=== PATIENT | male | born 1965 | race Caucasian/White ===

== ENCOUNTER 2024-01-16 20:42 | Observation (INO) | payer OTHER ==
--- NOTE | 2024-01-16 21:01 | ERPHSYRPT ---
- History of Present Illness Time Seen by Provider: 01/16/24 20:42 Source: patient, family ([id number]) Physician History: Pt c/o shortness of air for the past 2 days with weight gain since 8 days ago. Pt denies chest pain, abdominal pain, nausea, vomiting, diarrhea, fever. Allergies/Adverse Reactions: No Known Drug Allergies Allergy (Verified 01/16/24 20:44) Home Medications: Amlodipine Besylate 5 mg [Norvasc 5 mg] 5 mg PO DAILY 10/28/14 [History] Losartan Potassium 50 mg [Cozaar 50 MG] 50 mg PO DAILY 10/28/14 [History] Atorvastatin Calcium [Lipitor] 10 mg PO HS 01/16/24 [History] Hx Tetanus, Diphtheria Vaccination/Date Given: Yes (2011) Hx Influenza Vaccination/Date Given: No Hx Pneumococcal Vaccination/Date Given: No - Review of Systems Constitutional: No Fever Respiratory: Dyspnea Cardiac: No Chest Pain Abdominal/Gastrointestinal: No Abdominal Pain, No Nausea, No Vomiting, No Diarrhea Neurological: Headache (intermittent frontal headaches for years) - Past Medical History Pertinent Past Medical History: Yes Cardiac History: Hypertension Endocrine Medical History: Diabetes Type II - Past Surgical History Past Surgical History: Yes Other Surgical History: TONSILS. TENDON REPAIR - Social History Smoking Status: Current every day smoker Exposure to second hand smoke: No Drug Use: none Patient Lives Alone: No - Nursing Vital Signs Nursing Vital Signs: Initial Vital Signs Temperature 99.5 F 01/16/24 20:45 Pulse Rate 83 01/16/24 20:45 Respiratory Rate 18 01/16/24 20:45 Blood Pressure 180/72 01/16/24 20:45 O2 Sat by Pulse Oximetry 96 01/16/24 20:45 Pain Scale Pain Intensity 0 - Physical Exam General Appearance: alert Eye Exam: eyes nml inspection Ears, Nose, Throat Exam: hearing grossly normal, normal pharynx Neck Exam: normal inspection Respiratory Exam: lungs clear Cardiovascular/Chest Exam: normal heart sounds Abdominal/Gastrointestinal Exam: normal bowel sounds Extremity Exam: swelling (+2 edema of legs) Neurologic Exam: alert, cooperative Skin Exam: warm, dry SpO2 Interpretation: normal SpO2: 96 O2 Delivery: Room Air - Course EKG Interpreted by Me: RATE (83), Sinus Rhythm, NORMAL AXIS, Other (QTc = 420) - CT Exams Chest CT Interpretation: Tele-radiologist Report (No evidence of acute pulmonary thromboembolism. Mild to moderate bilateral pleural effusion with atelectatic bands in lower lobes and minimal surrounding haziness. See rest of report.) Ordered Tests: Active Orders 24 hr Category Date Time Status Residential Pest Control Technician STAT Care 01/16/24 20:58 Active EKG-ER Only STAT Care 01/16/24 20:56 Active IV Insertion STAT Care 01/16/24 20:56 Active Pulse Oximetry (ED) STAT Care 01/16/24 20:56 Active CHEST WITH CONTRAST [CT] Stat Exams 01/16/24 20:57 Completed CBC W DIFF Stat Lab 01/16/24 21:10 Completed CMP Stat Lab 01/16/24 21:10 Completed MAGNESIUM Stat Lab 01/16/24 21:10 Completed NT PRO BNPII Stat Lab 01/16/24 21:10 Completed TROPONIN Q4H Lab 01/16/24 21:10 Completed TROPONIN Q4H Lab 01/17/24 01:00 Ordered TROPONIN Q4H Lab 01/17/24 05:00 Ordered VENOUS BLOOD GAS Stat Lab 01/16/24 21:08 Completed Medication Summary Generic Name Dose Route Start Last Admin Trade Name Freq PRN Reason Stop Dose Admin Sodium Chloride 1,000 mls @ 100 mls/hr 01/16/24 21:00 01/16/24 21:13 Sodium Chloride 0.9% 1000 Ml IV 02/15/24 20:59 100 mls/hr .Q10H CRISTY Administration Discontinued Medications Generic Name Dose Route Start Last Admin Trade Name Freq PRN Reason Stop Dose Admin Furosemide 40 mg 01/17/24 00:21 Furosemide 40 Mg/4 Ml Vial IV 01/17/24 00:22 STAT ONE Lab/Rad Data: Laboratory Result Diagrams 01/16/24 21:10 01/16/24 21:10 Laboratory Results 01/16/24 01/16/24 01/16/24 Range/Units 21:10 21:10 21:10 WBC (4.23-9.07) x10^3/uL RBC (4.63-6.08) x10^6/uL Hgb (13.7-17.5) g/dL Hct (40.1-51.0) % MCV (79.0-92.2) fL MCH (25.7-32.2) pg MCHC (32.3-36.5) g/dL RDW (11.6-14.4) % Plt Count (163-337) x10^3/uL MPV (9.4-12.4) fL Gran % (34.0-67.9) % Immature Gran % (Auto) (0.001-0.429) % Nucleat RBC Rel Count (0.00-0.2) % Eos # (Auto) (0.04-0.54) x10^3/uL Immature Gran # (Auto) (0.001-0.031) x10^3u/L Absolute Lymphs (auto) (1.32-3.57) x10^3/uL Absolute Monos (auto) (0.30-0.82) x10^3/uL Absolute Nucleated RBC (0.00-0.012) x10^3u/L Lymphocytes % (21.8-53.1) % Monocytes % (5.3-12.2) % Eosinophils % (0.8-7.0) % Basophils % (0.2-1.2) % Absolute Granulocytes (1.78-5.38) x10^3/uL Basophils # (0.01-0.08) x10^3/uL pO2/FiO2 Ratio % VBG pH (7.32-7.42) VBG pCO2 at Pat Temp (42-55) mm/Hg VBG pO2 at Pat Temp (25-40) mm/Hg VBG HCO3 (22-28) meq/L VBG O2 Sat ([place]) (95-100) VBG Base Excess (-2.0-2.0) VBG Hemoglobin VBG Carboxyhemoglobin (0.0-6.9) % T HGB POC Potassium (3.5-5.1) Sodium (135-145) mmol/L Potassium (3.5-5.1) mmol/L Chloride (98-107) mmol/L Carbon Dioxide (22-30) mmol/L Anion Gap (5-15) MEQ/L BUN (9-20) mg/dL Creatinine (0.66-1.25) mg/dL Estimated GFR ML/MIN Glucose (74-106) mg/dL Calcium (8.4-10.2) mg/dL Magnesium (1.6-2.3) mg/dL Total Bilirubin (0.2-1.3) mg/dL AST (17-59) U/L ALT (0-50) U/L Alkaline Phosphatase (38-126) U/L Troponin I < 0.012 (0.000-0.033) ng/mL NT-Pro-B Natriuret Pep (<300) pg/mL Serum Total Protein (6.3-8.2) g/dL Albumin (3.5-5.0) g/dL Influenza Type A Ag NEGATIVE (NEGATIVE) Influenza Type B Ag NEGATIVE (NEGATIVE) RSV (PCR) NEGATIVE (NEGATIVE) SARS-CoV-2 (PCR) NEGATIVE (NEGATIVE) Group A Strep Antibody NOT DETECTED (NEGATIVE) 01/16/24 01/16/24 01/16/24 Range/Units 21:10 21:10 21:08 WBC 6.9 (4.23-9.07) x10^3/uL RBC 3.48 L (4.63-6.08) x10^6/uL Hgb 9.8 L (13.7-17.5) g/dL Hct 30.9 L (40.1-51.0) % MCV 88.8 (79.0-92.2) fL MCH 28.2 (25.7-32.2) pg MCHC 31.7 L (32.3-36.5) g/dL RDW 15.1 H (11.6-14.4) % Plt Count 155 L (163-337) x10^3/uL MPV 12.0 (9.4-12.4) fL Gran % 72.8 H (34.0-67.9) % Immature Gran % (Auto) 0.4 (0.001-0.429) % Nucleat RBC Rel Count 0.0 (0.00-0.2) % Eos # (Auto) 0.24 (0.04-0.54) x10^3/uL Immature Gran # (Auto) 0.03 (0.001-0.031) x10^3u/L Absolute Lymphs (auto) 1.00 L (1.32-3.57) x10^3/uL Absolute Monos (auto) 0.57 (0.30-0.82) x10^3/uL Absolute Nucleated RBC 0.00 (0.00-0.012) x10^3u/L Lymphocytes % 14.6 L (21.8-53.1) % Monocytes % 8.3 (5.3-12.2) % Eosinophils % 3.5 (0.8-7.0) % Basophils % 0.4 (0.2-1.2) % Absolute Granulocytes 5.00 (1.78-5.38) x10^3/uL Basophils # 0.03 (0.01-0.08) x10^3/uL pO2/FiO2 Ratio 21.0 % VBG pH 7.48 H (7.32-7.42) VBG pCO2 at Pat Temp 33 L (42-55) mm/Hg VBG pO2 at Pat Temp 63 H (25-40) mm/Hg VBG HCO3 24.6 (22-28) meq/L VBG O2 Sat ([place]) 94.1 L (95-100) VBG Base Excess 1.4 (-2.0-2.0) VBG Hemoglobin 10.4 VBG Carboxyhemoglobin 4.7 (0.0-6.9) % T HGB POC Potassium 6.5 H* (3.5-5.1) Sodium 136 (135-145) mmol/L Potassium 3.8 (3.5-5.1) mmol/L Chloride 105 (98-107) mmol/L Carbon Dioxide 23 (22-30) mmol/L Anion Gap 12.1 (5-15) MEQ/L BUN 20 (9-20) mg/dL Creatinine 0.83 (0.66-1.25) mg/dL Estimated GFR 100.2 ML/MIN Glucose 157 H (74-106) mg/dL Calcium 8.7 (8.4-10.2) mg/dL Magnesium 1.9 (1.6-2.3) mg/dL Total Bilirubin 0.40 (0.2-1.3) mg/dL AST 26 (17-59) U/L ALT 33 (0-50) U/L Alkaline Phosphatase 94 (38-126) U/L Troponin I (0.000-0.033) ng/mL NT-Pro-B Natriuret Pep 1610 (<300) pg/mL Serum Total Protein 5.8 L (6.3-8.2) g/dL Albumin 3.1 L (3.5-5.0) g/dL Influenza Type A Ag (NEGATIVE) Influenza Type B Ag (NEGATIVE) RSV (PCR) (NEGATIVE) SARS-CoV-2 (PCR) (NEGATIVE) Group A Strep Antibody (NEGATIVE) - Progress Progress: unchanged Discussed with : Delilah (Spoke with & discussed case with Dr. Coughlin - obs) Will see patient in: hospital (observation) Counseled pt/family regarding: lab results, diagnosis, rad results Medical Desision Making - Diagnostic Testing Diagnostic test were ordered, analyzed, and reviewed by me: Yes Radiological Interpretation: Teleradiologist Report - Departure Departure Disposition: Observation Clinical Impression: Bilateral pleural effusion, Dyspnea Condition: Stable Critical Care Time: No Referrals: AYANA GARVEY DO [NON-STAFF PHY W/O PRIVILEGES] - Follow up/PCP as directed
[2024-01-16] MEDS ORDERED: Sodium Chloride 0.9% 1000 ML 1,000 ML ONE (21:09)
[2024-01-16 21:11] LABS: VBG BASE EXCESS 1.4 (-2.0-2.0); VBG CARBOXYHEMOGLOBIN 4.7 % T HGB (0.0-6.9); VBG HCO3- 24.6 meq/L (22-28); VBG HEMOGLOBIN 10.4; VBG O2 SATURATION 94.1 (95-100); VBG POTASSIUM 6.5 (3.5-5.1); VBG pH 7.48 (7.32-7.42)
[2024-01-16] MEDS: Sodium Chloride 0.9% 1000 ML 1,000 ML IV SCH (21:13)
[2024-01-16 21:18] LABS: BASOPHIL % 0.4 % (0.2-1.2); Basophil (Absolute #) 0.03 x10^3/uL (0.01-0.08); Eosinophil % 3.5 % (0.8-7.0); Eosinophil (Absolute #) 0.24 x10^3/uL (0.04-0.54); Hematocrit 30.9 % (40.1-51.0); Hemoglobin 9.8 g/dL (13.7-17.5); IMMATURE GRAN # 0.03 x10^3u/L (0.001-0.031); IMMATURE GRAN % 0.4 % (0.001-0.429); Lymphocytes % 14.6 % (21.8-53.1); Mean Cell Volume 88.8 fL (79.0-92.2); Mean Corpuscular Hemoglobin 28.2 pg (25.7-32.2); Mean Corpuscular Hgb Concent. 31.7 g/dL (32.3-36.5); Monocyte (Absolute #) 0.57 x10^3/uL (0.30-0.82); Monocytes % 8.3 % (5.3-12.2); Neutrophil % 72.8 % (34.0-67.9); Platelet Count 155 x10^3/uL (163-337); Red Blood Count 3.48 x10^6/uL (4.63-6.08); Red Cell Distribution Width 15.1 % (11.6-14.4); White Blood Count 6.9 x10^3/uL (4.23-9.07)
[2024-01-16 21:44] LABS: ALBUMIN 3.1 g/dL (3.5-5.0); ANION GAP 12.1 MEQ/L (5-15); BILIRUBIN,TOTAL 0.4 mg/dL (0.2-1.3); Calcium 8.7 mg/dL (8.4-10.2); Creatinine 1 0.83 mg/dL (0.66-1.25); EST GLOMERULAR FILTRATION RATE 100.2 ML/MIN; MAGNESIUM 1.9 mg/dL (1.6-2.3); Potassium 3.8 mmol/L (3.5-5.1); Total Protein 5.8 g/dL (6.3-8.2)
[2024-01-16 22:01] LABS: INFLUENZA A NEGATIVE (NEGATIVE); INFLUENZA B NEGATIVE (NEGATIVE); RESPIRATORY SYNCTIAL VIRUS NEGATIVE (NEGATIVE); SARS-CoV-2 Xpert Express NEGATIVE (NEGATIVE)
--- NOTE | 2024-01-16 23:48 | XRAY ---
CLINICAL HISTORY: dyspnea COMPARISON: None. TECHNIQUE: Contiguous 3.[address] images of the chest were acquired with intravenous contrast administration. Coronal and sagittal reconstructions were obtained. One of the following dose reduction techniques were utilized for this exam: Automated exposure control, adjustment of the mA and/or kV according to patient size, and use of iterative reconstruction. FINDINGS: Pulmonary Arteries: Pulmonary arteries are normal in size and opacification. No evidence of pulmonary embolism. No stenosis or filling defects. Aorta: The thoracic aorta shows atherosclerotic changes. Mediastinum: Few subcentimeteric nonspecific mediastinal nodes. Heart: Normal size and morphology of the heart. No pericardial effusion. Lungs: Mild to moderate bilateral pleural effusion with atelectatic bands in lower lobes and minimal surrounding haziness. A 4-5mm calcified nodule in superior segment of right lower lobe. Mosaic attenuation in bilateral lung skag[place]. Bones: Degenerative changes in thoracic spine. Sections of upper abdomen show 22 mm hypodense nodule in the right adrenal gland, possibly an adenoma. IMPRESSION: 1. No evidence of Acute pulmonary thromboembolism. 2. Mild to moderate bilateral pleural effusion with atelectatic bands in lower lobes and minimal surrounding haziness. Clinical and laboratory correlation is advised. 3. Mosaic attenuation in bilateral lung skaggs 4. A 4-5mm calcified nodule in the superior segment of right lower lobe. No follow-up is required. 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 Eduar Valenzuela was informed about the important findings. Electronically Signed by: Andrei Merchant MD. (01/16/2024 23:44:14 EDT)
[2024-01-17] MEDS ORDERED: Lasix 40 MG/4 ML ONE (00:42)
[2024-01-17] MEDS: Lasix 40 MG/4 ML IV ONE (00:43)
[2024-01-17] MEDS ORDERED: TYLENOL 325 MG PO PRN (03:21)
--- NOTE | 2024-01-17 03:29 | PCM.HP ---
History of Present Illness - Chief Complaint Chief Complaint: shortness of breath Date: 01/17/24 History of Present Illness: 58 y/o M with h/o DM2, HTN, and tobacco dependence, presents with dyspnea and leg edema. Patient noted onset three days ago of swelling in abdomen and legs, associated with dyspnea. Dyspnea is intermittent, sometimes worse with exertion, relieved by rest. Denies orthopnea, PND, chest pain, or early satiety. Notes that he was able to walk in to the ED without any dyspnea this evening. He denies any prior h/o edema, or any personal or family history of heart disease. He denies nausea, diaphoresis, numbness, cough, or sore throat. Pain is un changed. Patient notes that he was hospitalized a week ago in [place] for hyperglycemia of 1300, and that "all of my medications were changed, and that's when I felt bad after getting home." Denies discussing any anemia or abnormal blood counts at that time, other than his elevated A1c when he saw his PCP this week. He has a 30 pack-year smoking; quit after his hospital admission last week. He has never had an echocardiogram or a colonoscopy. - Review of Systems Constitutional: No Fever, No Chills, No Fatigue Eyes: No Eye Pain, No Vision Changes Ears, Nose, & Throat: No Nose Congestion, No Throat Pain Respiratory: Short Of Breath, No Cough, No Orthopnea, No Stridor, No Wheezing Cardiac: Edema, No Chest Pain, No Palpitations, No Orthopnea, No PND Abdominal/Gastrointestinal: No Abdominal Pain, No Nausea, No Vomiting Genitourinary Symptoms: Dysuria, No Frequency Medications & Allergies Home Medications: Home Medication List Amlodipine Besylate 5 mg [Norvasc 5 mg] 5 mg PO DAILY 10/28/14 [History Confirmed 01/16/24] Losartan Potassium 50 mg [Cozaar 50 MG] 50 mg PO DAILY 10/28/14 [History Confirmed 01/16/24] Atorvastatin Calcium [Lipitor] 10 mg PO HS 01/16/24 [History Confirmed 01/16/24] Bisoprolol Fumarate 5 mg PO DAILY 01/17/24 [History Confirmed 01/17/24] Insulin Aspart [Insulin Aspart Flexpen] 0 ml SQ TIDWMEALS 01/17/24 [History Con firmed 01/17/24] Insulin Glargine [Lantus Insulin] 18 unit SQ BID 01/17/24 [History Confirmed 01/17/24] Allergies/Adverse Reactions: Allergies Allergy/AdvReac Type Severity Reaction Status Date / Time No Known Drug Allergies Allergy Verified 01/17/24 02:05 - Past Medical History Past Medical History: Yes Neurological History: No Pertinent History ENT History: No Pertinent History Cardiac History: Hypertension Respiratory History: No Pertinent History, Sleep Apnea Endocrine Medical History: Diabetes Type II Musculoskelatal History: No Pertinent History GI Medical History: No Pertinent History History: No Pertinent History Pyscho-Social History: No Pertinent History Male Reproductive Disorders: No Pertinent History - Past Surgical History Past Surgical History: Yes Other Surgical History: TONSILS. TENDON REPAIR. 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, was hospitalized for one month ([facility]) 2019 - Social History Smoking Status: Former smoker Exposure to second hand smoke: No Alcohol: Occasionally Drug Use: none - Social Determinants of Health Will the patient participate in the screening: Yes Do you worry about a steady place to live?: No Do you have any problems with any of the following?: No known problems In the past 12 months,have you had to go without utilities?: No Have you or anyone in your house had to go without enough: No Transportation Issues: No Has anyone in your support network made you feel unsafe?: No Does the patient want assistance with any of the above?: No - Physical Exam Vital Signs: Vital Signs - 24 hr Temp Pulse Resp BP BP Pulse Ox 01/17/24 02:23 77 16 93 L 01/17/24 01:31 97.3 F 76 28 H 145/67 89 L 01/17/24 01:11 89 L 01/17/24 01:00 76 18 146/58 94 L 01/17/24 00:49 96 01/17/24 00:31 80 14 128/54 94 L 01/17/24 00:00 81 15 117/50 93 L 01/16/24 23:30 80 17 140/63 94 L 01/16/24 23:11 79 16 127/56 93 L 01/16/24 23:01 89/40 96 01/16/24 22:31 162/70 01/16/24 22:00 84 17 131/53 96 08/11/24 21:30 76 18 128/53 94 L 01/16/24 21:09 96 01/16/24 21:00 78 19 157/68 93 L 01/16/24 20:45 99.5 F 83 18 180/72 96 General Appearance: no apparent distress Neurologic Exam: alert, oriented x 3 Eye Exam: eyes nml inspection Respiratory Exam: normal breath sounds, lungs clear, other (on room air), No respiratory distress Cardiovascular Exam: regular rate/rhythm, normal heart sounds, No edema Gastrointestinal/Abdomen Exam: normal bowel sounds, No distention Results - Labs Lab/Micro Results: Lab Results-Last 24 Hours 01/16/24 01/16/24 01/16/24 Range/Units 21:08 21:10 21:10 WBC 6.9 (4.23-9.07) x10^3/uL RBC 3.48 L (4.63-6.08) x10^6/uL Hgb 9.8 L (13.7-17.5) g/dL Hct 30.9 L (40.1-51.0) % MCV 88.8 (79.0-92.2) fL MCH 28.2 (25.7-32.2) pg MCHC 31.7 L (32.3-36.5) g/dL RDW 15.1 H (11.6-14.4) % Plt Count 155 L (163-337) x10^3/uL MPV 12.0 (9.4-12.4) fL Gran % 72.8 H (34.0-67.9) % Immature Gran % (Auto) 0.4 (0.001-0.429) % Nucleat RBC Rel Count 0.0 (0.00-0.2) % Eos # (Auto) 0.24 (0.04-0.54) x10^3/uL Immature Gran # (Auto) 0.03 (0.001-0.031) x10^3u/L Absolute Lymphs (auto) 1.00 L (1.32-3.57) x10^3/uL Absolute Monos (auto) 0.57 (0.30-0.82) x10^3/uL Absolute Nucleated RBC 0.00 (0.00-0.012) x10^3u/L Lymphocytes % 14.6 L (21.8-53.1) % Monocytes % 8.3 (5.3-12.2) % Eosinophils % 3.5 (0.8-7.0) % Basophils % 0.4 (0.2-1.2) % Absolute Granulocytes 5.00 (1.78-5.38) x10^3/uL Basophils # 0.03 (0.01-0.08) x10^3/uL pO2/FiO2 Ratio 21.0 % VBG pH 7.48 H (7.32-7.42) VBG pCO2 at Pat Temp 33 L (42-55) mm/Hg VBG pO2 at Pat Temp 63 H (25-40) mm/Hg VBG HCO3 24.6 (22-28) meq/L VBG O2 Sat ([place]) 94.1 L (95-100) VBG Base Excess 1.4 (-2.0-2.0) VBG Hemoglobin 10.4 VBG Carboxyhemoglobin 4.7 (0.0-6.9) % T HGB POC Potassium 6.5 H* (3.5-5.1) Sodium 136 (135-145) mmol/L Potassium 3.8 (3.5-5.1) mmol/L Chloride 105 (98-107) mmol/L Carbon Dioxide 23 (22-30) mmol/L Anion Gap 12.1 (5-15) MEQ/L BUN 20 (9-20) mg/dL Creatinine 0.83 (0.66-1.25) mg/dL Estimated GFR 100.2 ML/MIN Glucose 157 H (74-106) mg/dL Calcium 8.7 (8.4-10.2) mg/dL Magnesium 1.9 (1.6-2.3) mg/dL Total Bilirubin 0.40 (0.2-1.3) mg/dL AST 26 (17-59) U/L ALT 33 (0-50) U/L Alkaline Phosphatase 94 (38-126) U/L Troponin I (0.000-0.033) ng/mL NT-Pro-B Natriuret Pep 1610 (<300) pg/mL Serum Total Protein 5.8 L (6.3-8.2) g/dL Albumin 3.1 L (3.5-5.0) g/dL Influenza Type A Ag (NEGATIVE) Influenza Type B Ag (NEGATIVE) RSV (PCR) (NEGATIVE) SARS-CoV-2 (PCR) (NEGATIVE) Group A Strep Antibody (NEGATIVE) 01/16/24 01/16/24 01/16/24 Range/Units 21:10 21:10 21:10 WBC (4.23-9.07) x10^3/uL RBC (4.63-6.08) x10^6/uL Hgb (13.7-17.5) g/dL Hct (40.1-51.0) % MCV (79.0-92.2) fL MCH (25.7-32.2) pg MCHC (32.3-36.5) g/dL RDW (11.6-14.4) % Plt Count (163-337) x10^3/uL MPV (9.4-12.4) fL Gran % (34.0-67.9) % Immature Gran % (Auto) (0.001-0.429) % Nucleat RBC Rel Count (0.00-0.2) % Eos # (Auto) (0.04-0.54) x10^3/uL Immature Gran # (Auto) (0.001-0.031) x10^3u/L Absolute Lymphs (auto) (1.32-3.57) x10^3/uL Absolute Monos (auto) (0.30-0.82) x10^3/uL Absolute Nucleated RBC (0.00-0.012) x10^3u/L Lymphocytes % (21.8-53.1) % Monocytes % (5.3-12.2) % Eosinophils % (0.8-7.0) % Basophils % (0.2-1.2) % Absolute Granulocytes (1.78-5.38) x10^3/uL Basophils # (0.01-0.08) x10^3/uL pO2/FiO2 Ratio % VBG pH (7.32-7.42) VBG pCO2 at Pat Temp (42-55) mm/Hg VBG pO2 at Pat Temp (25-40) mm/Hg VBG HCO3 (22-28) meq/L VBG O2 Sat ([place]) (95-100) VBG Base Excess (-2.0-2.0) VBG Hemoglobin VBG Carboxyhemoglobin (0.0-6.9) % T HGB POC Potassium (3.5-5.1) Sodium (135-145) mmol/L Potassium (3.5-5.1) mmol/L Chloride (98-107) mmol/L Carbon Dioxide (22-30) mmol/L Anion Gap (5-15) MEQ/L BUN (9-20) mg/dL Creatinine (0.66-1.25) mg/dL Estimated GFR ML/MIN Glucose (74-106) mg/dL Calcium (8.4-10.2) mg/dL Magnesium (1.6-2.3) mg/dL Total Bilirubin (0.2-1.3) mg/dL AST (17-59) U/L ALT (0-50) U/L Alkaline Phosphatase (38-126) U/L Troponin I < 0.012 (0.000-0.033) ng/mL NT-Pro-B Natriuret Pep (<300) pg/mL Serum Total Protein (6.3-8.2) g/dL Albumin (3.5-5.0) g/dL Influenza Type A Ag NEGATIVE (NEGATIVE) Influenza Type B Ag NEGATIVE (NEGATIVE) RSV (PCR) NEGATIVE (NEGATIVE) SARS-CoV-2 (PCR) NEGATIVE (NEGATIVE) Group A Strep Antibody NOT DETECTED (NEGATIVE) 01/17/24 Range/Units 00:52 WBC (4.23-9.07) x10^3/uL RBC (4.63-6.08) x10^6/uL Hgb (13.7-17.5) g/dL Hct (40.1-51.0) % MCV (79.0-92.2) fL MCH (25.7-32.2) pg MCHC (32.3-36.5) g/dL RDW (11.6-14.4) % Plt Count (163-337) x10^3/uL MPV (9.4-12.4) fL Gran % (34.0-67.9) % Immature Gran % (Auto) (0.001-0.429) % Nucleat RBC Rel Count (0.00-0.2) % Eos # (Auto) (0.04-0.54) x10^3/uL Immature Gran # (Auto) (0.001-0.031) x10^3u/L Absolute Lymphs (auto) (1.32-3.57) x10^3/uL Absolute Monos (auto) (0.30-0.82) x10^3/uL Absolute Nucleated RBC (0.00-0.012) x10^3u/L Lymphocytes % (21.8-53.1) % Monocytes % (5.3-12.2) % Eosinophils % (0.8-7.0) % Basophils % (0.2-1.2) % Absolute Granulocytes (1.78-5.38) x10^3/uL Basophils # (0.01-0.08) x10^3/uL pO2/FiO2 Ratio % VBG pH (7.32-7.42) VBG pCO2 at Pat Temp (42-55) mm/Hg VBG pO2 at Pat Temp (25-40) mm/Hg VBG HCO3 (22-28) meq/L VBG O2 Sat ([place]) (95-100) VBG Base Excess (-2.0-2.0) VBG Hemoglobin VBG Carboxyhemoglobin (0.0-6.9) % T HGB POC Potassium (3.5-5.1) Sodium (135-145) mmol/L Potassium (3.5-5.1) mmol/L Chloride (98-107) mmol/L Carbon Dioxide (22-30) mmol/L Anion Gap (5-15) MEQ/L BUN (9-20) mg/dL Creatinine (0.66-1.25) mg/dL Estimated GFR ML/MIN Glucose (74-106) mg/dL Calcium (8.4-10.2) mg/dL Magnesium (1.6-2.3) mg/dL Total Bilirubin (0.2-1.3) mg/dL AST (17-59) U/L ALT (0-50) U/L Alkaline Phosphatase (38-126) U/L Troponin I 0.013 (0.000-0.033) ng/mL NT-Pro-B Natriuret Pep (<300) pg/mL Serum Total Protein (6.3-8.2) g/dL Albumin (3.5-5.0) g/dL Influenza Type A Ag (NEGATIVE) Influenza Type B Ag (NEGATIVE) RSV (PCR) (NEGATIVE) SARS-CoV-2 (PCR) (NEGATIVE) Group A Strep Antibody (NEGATIVE) - Radiology Impressions Radiology Exams & Impressions: Radiology Procedures Category Date Time Status CHEST WITH CONTRAST [CT] Stat Exams 01/16/24 20:57 Completed ECHO W/2D AND DOPPLER [US] Routine Exams 01/17/24 03:[address] Chest - no PE, small to moderate bilateral pleural effusions with adjacent compressive atelectasis. No consolidation. (Images reviewed.) - Other Procedures and Tests Respiratory Therapy 01/17/24 01:11 EKG REPEAT IN AM Assessment/Plan (1) Dyspnea Current Visit: Yes Status: Acute Assessment & Plan: 58 y/o M with h/o DM2, HTN, and tobacco dependence, here with dyspnea with pleural effusions. ## Dyspnea - concerning for early CHF, with description of edema, although lacks hallmarks CHF symptoms. He has some risk factors for cardiac disease with his age, gender, and smoking history. Has never had an echo, and does not take diuretics typically. No signs of parenchymal lung disease on CT. - lasix 40 IV BID, first dose now - monitor K, Mg levels - check TTE ## normocytic anemia - normal Hb one year ago. Patient denies melena or hematochezia. He has never had a colonoscopy. However, is not so low as to explain his dyspnea. - repeat CBC in AM - check ferritin, Fe/TIBC, reticulocyte count - if normal, will need to follow up as outpatient for colonoscopy ## DM2 - very poorly controlled; HbA1c this week was > 15.5 (per patient, was recorded as 18 in [facility] one week ago.) Admission Glc levels better controlled. - continue home Lantus 18 BID - cover with moderate dose sliding scale insulin ## tobacco dependence - with 30 pack-year smoking history, in remission now, off cigarettes for the last week. - continue to encourage tobacco cessation ## hypertension - BP controlled. - continue losartan 50, amlodipine 5, bisoprolol 5 Code status: Full code Prophylaxis: Lovenox 40 Diet: Diabetic 2000 kcal Code(s): R06.00 - DYSPNEA, UNSPECIFIED Telemedicine Encounter - Telemedicine Encounter Telemedicine Encounter: "The entirety of this encounter was performed via Telemedicine" This visit was performed using real-time audio and video connection between my location and thepatients locationwith the assistance of a surrogateat the patients location. Written or verbal consent was obtained from the patient/guardian to perform this visit usingnchr[facility] technology. Any patient questions regarding the telemedicine interaction were answered.
[2024-01-17 05:22] LABS: RETICULOCYTE HEMOGLOBIN 26.3 pg (28-36.6)
[2024-01-17 05:50] LABS: Iron 42 ug/dL (49-181); Iron Saturation 18 % (20-39); TIBC 236 ug/dL (261-497)
[2024-01-17 06:28] LABS: Absolute Neutrophil Ct (ANC) 4.39 x10^3/uL (1.78-5.38); BASOPHIL % 0.5 % (0.2-1.2); Basophil (Absolute #) 0.03 x10^3/uL (0.01-0.08); Eosinophil % 2.8 % (0.8-7.0); Eosinophil (Absolute #) 0.18 x10^3/uL (0.04-0.54); Hematocrit 29.9 % (40.1-51.0); Hemoglobin 9.4 g/dL (13.7-17.5); IMMATURE GRAN # 0.04 x10^3u/L (0.001-0.031); IMMATURE GRAN % 0.6 % (0.001-0.429); Lymphocyte (Absolute #) 1.32 x10^3/uL (1.32-3.57); Lymphocytes % 20.3 % (21.8-53.1); Mean Cell Volume 89.3 fL (79.0-92.2); Mean Corpuscular Hemoglobin 28.1 pg (25.7-32.2); Mean Corpuscular Hgb Concent. 31.4 g/dL (32.3-36.5); Mean Platelet Volume 12.2 fL (9.4-12.4); Monocyte (Absolute #) 0.53 x10^3/uL (0.30-0.82); Monocytes % 8.2 % (5.3-12.2); Neutrophil % 67.6 % (34.0-67.9); Platelet Count 169 x10^3/uL (163-337); Red Blood Count 3.35 x10^6/uL (4.63-6.08); Red Cell Distribution Width 15.2 % (11.6-14.4); White Blood Count 6.5 x10^3/uL (4.23-9.07)
[2024-01-17 06:34] LABS: ANION GAP 7.3 MEQ/L (5-15); BILIRUBIN,TOTAL 0.5 mg/dL (0.2-1.3); Calcium 8.6 mg/dL (8.4-10.2); Creatinine 1 0.81 mg/dL (0.66-1.25); EST GLOMERULAR FILTRATION RATE 100.9 ML/MIN; Total Protein 5.8 g/dL (6.3-8.2)
[2024-01-17] MEDS ORDERED: MEDICATION INTERVENTION MC SCH (08:00)
[2024-01-17] MEDS: ENOXAPARIN SODIUM SQ SCH (09:28)
[2024-01-17] MEDS: Lantus Insulin SQ SCH (09:28)
[2024-01-17] MEDS: FEOSOL 325 MG PO SCH (09:30)
[2024-01-17] MEDS: Cozaar 50 MG PO SCH ×2 (09:30→22:07)
[2024-01-17] MEDS: NORVASC 5 MG PO SCH (09:30)
[2024-01-17] MEDS: Lasix 40 MG/4 ML IV SCH (09:30)
[2024-01-17] MEDS ORDERED: Lasix 20 MG/2 ML IV SCH (10:00)
[2024-01-17] MEDS ORDERED: NORVASC 5 MG PO SCH (10:00)
[2024-01-17] MEDS ORDERED: NON-FORMULARY ITEM (Bisoprolol Fumarate [Bisoprolol Fumarate] 5 MG Tablet) PO SCH (10:00)
[2024-01-17] MEDS: HUMALOG SQ PRN (12:19)
--- NOTE | 2024-01-17 17:27 | PCM.CONS ---
History of Present Illness - Date of Consult Date of Encounter: 01/17/24 [employer] Insurance: ALEX VASQUEZ MD Requesting Provider: Attending Provider: MONICA HAWKINS MD Primary Care Provider: PCP: ARABELLA ABDI MEDICAL CODING TECHNICIAN - Consult Narrative Reason for Consult: Possible CHF HPI: Patient is a 58M who denies fevers, chills, nausea, vomiting, diarrhea, syncope, presyncope, dysphagia,odynophagia, orthopnea, paroxysmal nocturnal dyspnea, shortness of breath, chest pain, refluxsymptoms, belly pain, dysuria, hematuria, melena, hematochezia, seizures, paralysis, or other neurological changes. All other systems have been reviewed and are negative. cc:: The requesting physician will be sent a copy of the consult. - Past Medical History Past Medical History: Yes Neurological History: No Pertinent History ENT History: No Pertinent History Cardiac History: Hypertension Respiratory History: No Pertinent History, Sleep Apnea Endocrine Medical History: Diabetes Type II Musculoskelatal History: No Pertinent History GI Medical History: No Pertinent History History: No Pertinent History Pyscho-Social History: No Pertinent History Male Reproductive Disorders: No Pertinent History - Past Surgical History Past Surgical History: Yes Other Surgical History: TONSILS. TENDON REPAIR. 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, was hospitalized for one month ([facility]) 2019 - Social History Smoking Status: Former smoker Exposure to second hand smoke: No Alcohol: Occasionally Drug Use: none - Social Determinants of Health Will the patient participate in the screening: Yes Do you worry about a steady place to live?: No Do you have any problems with any of the following?: No known problems In the past 12 months,have you had to go without utilities?: No Have you or anyone in your house had to go without enough: No Transportation Issues: No Has anyone in your support network made you feel unsafe?: No Does the patient want assistance with any of the above?: No Medications & Allergies Home Medications: Home Medication List Amlodipine Besylate 5 mg [Norvasc 5 mg] 5 mg PO DAILY 10/28/14 [History Confirmed 01/16/24] Losartan Potassium 50 mg [Cozaar 50 MG] 50 mg PO DAILY 10/28/14 [History Confirmed 01/16/24] Atorvastatin Calcium [Lipitor] 10 mg PO HS 01/16/24 [History Confirmed 01/16/24] Bisoprolol Fumarate 5 mg PO DAILY 01/17/24 [History Confirmed 01/17/24] Insulin Aspart [Insulin Aspart Flexpen] 0 ml SQ TIDWMEALS 01/17/24 [History Confirmed 01/17/24] Insulin Glargine [Lantus Insulin] 18 unit SQ BID 01/17/24 [History Confirmed 01/17/24] Allergies/Adverse Reactions: Allergies Allergy/AdvReac Type Severity Reaction Status Date / Time No Known Drug Allergies Allergy Verified 01/17/24 02:05 Exam - Vitals Vital Signs: Vital Signs - 24 hr Temp Pulse Resp BP BP Pulse Ox 01/17/24 16:00 97.8 F 87 22 176/75 98 01/17/24 12:00 98.6 F 73 16 143/65 95 01/17/24 08:00 97.9 F 73 16 163/77 93 L 01/17/24 07:14 93 L 01/17/24 02:23 77 16 93 L 01/17/24 01:31 97.3 F 76 28 H 145/67 89 L 01/17/24 01:11 89 L 01/17/24 01:00 76 18 146/58 94 L 01/17/24 00:49 96 01/17/24 00:31 80 14 128/54 94 L 01/17/24 00:00 81 15 117/50 93 L 01/16/24 23:30 80 17 140/63 94 L 01/16/24 23:11 79 16 127/56 93 L 01/16/24 23:01 89/40 96 01/16/24 22:31 162/70 01/16/24 22:00 84 17 131/53 96 01/16/24 21:30 76 18 128/53 94 L 01/16/24 21:09 96 01/16/24 21:00 78 19 157/68 93 L 01/16/24 20:45 99.5 F 83 18 180/72 96 SpO2: 98 Results Vital Signs: Vital Signs - 24 hr Temp Pulse Resp BP BP Pulse Ox 01/17/24 16:00 97.8 F 87 22 176/75 98 01/17/24 12:00 98.6 F 73 16 143/65 95 08/12/24 08:00 97.9 F 73 16 163/77 93 L 01/17/24 07:14 93 L 01/17/24 02:23 77 16 93 L 01/17/24 01:31 97.3 F 76 28 H 145/67 89 L 01/17/24 01:11 89 L 01/17/24 01:00 76 18 146/58 94 L 01/17/24 00:49 96 01/17/24 00:31 80 14 128/54 94 L 01/17/24 00:00 81 15 117/50 93 L 01/16/24 23:30 80 17 140/63 94 L 01/16/24 23:11 79 16 127/56 93 L 01/16/24 23:01 89/40 96 01/16/24 22:31 162/70 01/16/24 22:00 84 17 131/53 96 01/16/24 21:30 76 18 128/53 94 L 01/16/24 21:09 96 01/16/24 21:00 78 19 157/68 93 L 01/16/24 20:45 99.5 F 83 18 180/72 96 Pain Assessment - Last Documented Pain Intensity 0 Intake and Output: Intake & Output 01/15/24 01/16/24 01/17/24 01/18/24 11:59 11:59 11:59 11:59 Intake Total 600 Output Total 2300 4300 Balance -1700 -4300 Weight 124.284 kg LAB: I [facility]. Serial cardiac enzymes (troponin-I): <0.012, 0.013, 0.015). Radiology Exams: Radiology Procedures Category Date Time Status CHEST WITH CONTRAST [CT] Stat Exams 01/16/24 20:57 Completed ECHO W/2D AND DOPPLER [US] Routine Exams 01/17/24 03:21 Taken TRANSTHORACIC ECHOCARDIOGRAM 01/17/2024: N.B. This is the correct report. Another patient's report is listed below. 1. Mildly dilated left atrium. Other chamber sizes are normal. 2. Mild concentric left ventricular hypertrophy. 3. Normal left ventricular systolic function without focal wall motion abnormalities. Estimated EF 55-60%. 4. Mild diastolic dysfunction. 5. Normal right ventricular systolic function. 6. Moderately sclerotic aortic valve appears bicuspid without aortic stenosis. 7. Doppler: No significant valvular regurgitation. 8. Mildly elevated pulmonary artery systolic pressure (34 mmHg). 9. Mildly elevated right atrial pressure (8 mmHg). 10. No pericardial effusion. CTA Pulmonary Artery 01/16/2024: 1. No evidence of Acute pulmonary thromboembolism. 2. Mild to moderate bilateral pleural effusion with atelectatic bands in lower lobes and minimal surrounding haziness. Clinical and laboratory correlation is advised. 3. Mosaic attenuation in bilateral lung skaggs 4. A 4-5mm calcified nodule in the superior segment of right lower lobe. No follow-up is required. Tracing 1 Attestation: I have reviewed this EKG and interpreted as documented below. EKG Narrative: ECG 01/17/2024: NSR at 63 bpm. PRWP. Nonspecific T wave abnormality. Multi-Disciplinary Progress Notes: Multi-Disciplinary Progress Notes 01/17/24 17:13 Radiology Note by ALEX VASQUEZ TRANSTHORACIC ECHOCARDIOGRAM 01/17/2024: 1. In sinus rhythm during study. 2. Normal sized atria. 3. Normal biventricular wall thickness, chamber size and systolic function. 4. Estimated left ventricular ejection fraction is 55%. 5. Normal diastolic function profile. 6. Mild aortic sclerosis without stenosis. 7. Doppler: No significant valvular regurgitation. 8. Unable to estimate PA systolic pressure. 9. Mildly elevated right atrial pressure. 10. No pericardial effusion. Alex Vasquez MD [facility] Initialized on 01/17/24 17:13 - END OF NOTE Assessment & Plan (1) Acute heart failure with preserved ejection fraction (HFpEF) Current Visit: Yes Status: Acute Assessment & Plan: New diagnosis. Most likely related to hypertensive heart disease and its attendant diastolic dysfunction. Need to evaluate for coronary artery disease. Siginificant diuresis with IV furosemide (net diuresis 6.3 liters thus far). Will change IV furosemide to torsemide 20 mg by mouth daily. If creatinine remains stable in am, consider adding an SGLT-2 inhibitor. Code(s): I50.31 - ACUTE DIASTOLIC (CONGESTIVE) HEART FAILURE (2) Hypertension Current Visit: Yes Status: Acute Assessment & Plan: Uncontrolled. Exacerbated by beta-arlet withdrawal. Will increase losartan to 50 mg by mouth twice daily and discontinue lisinopril. If significant HTN persists tomorrow, consider increasing amlodipine to 10 mg daily. Code(s): I10 - ESSENTIAL (PRIMARY) HYPERTENSION (3) Diabetes mellitus type II, uncontrolled Current Visit: Yes Status: Acute Assessment & Plan: Hospitalized last week with this diagnosis - placed on insulin. Will eventually add SGLT2-inhibitor for treatment of HFpEF which will also treat his DM. Code(s): YRB1706 - - Encounter Encounter: "The entirety of this encounter was performed via Telemedicine using audio and visual. " Patient granted permission for this type of consult. Case discussed with Jaquelin Parada NP.
[2024-01-17] MEDS: Zestril 10 MG PO SCH (17:30)
[2024-01-17] MEDS ORDERED: NON-FORMULARY ITEM (Atorvastatin Calcium 10 MG Tablet) PO SCH (22:00)
[2024-01-17] MEDS: Zocor 10MG PO SCH (22:07)
[2024-01-18 05:15] LABS: Hematocrit 27.3 % (40.1-51.0); Hemoglobin 8.7 g/dL (13.7-17.5); Mean Cell Volume 87.5 fL (79.0-92.2); Mean Corpuscular Hemoglobin 27.9 pg (25.7-32.2); Mean Corpuscular Hgb Concent. 31.9 g/dL (32.3-36.5); Mean Platelet Volume 11.2 fL (9.4-12.4); Platelet Count 192 x10^3/uL (163-337); Red Blood Count 3.12 x10^6/uL (4.63-6.08); Red Cell Distribution Width 15.1 % (11.6-14.4); White Blood Count 6.5 x10^3/uL (4.23-9.07)
[2024-01-18 05:42] LABS: ANION GAP 7.1 MEQ/L (5-15); BILIRUBIN,TOTAL 0.3 mg/dL (0.2-1.3); Calcium 8.3 mg/dL (8.4-10.2); Creatinine 1 0.95 mg/dL (0.66-1.25); EST GLOMERULAR FILTRATION RATE 91.6 ML/MIN; Potassium 3.3 mmol/L (3.5-5.1); Total Protein 5.8 g/dL (6.3-8.2)
[2024-01-18 07:25] VITALS: TEMP 99
[2024-01-18] MEDS: Klor Con PO SCH (08:29)
[2024-01-18] MEDS: DEMADEX 20 MG PO SCH (10:28)
[2024-01-18] MEDS: PATIENT OWN MEDICATION PO SCH (12:12)
--- NOTE | 2024-01-18 12:14 | PCM.DS ---
Discharge Summary Date of Admission: 01/17/24 01:14 Date of Discharge: 01/18/24 Admitting Physician: MONICA HAWKINS MD Consults: Consults on Case 01/17/24 11:30 Consult Cardiology ROUTINE Primary Care Provider: ARABELLA ABDI Allergies Allergies No Known Drug Allergies Allergy (Verified 01/17/24 02:05) Hospital Summary - Hospital Course Hospital Course: 01/18/24 58 y/o M with h/o DM2, HTN, and tobacco dependence, presented with dyspnea and leg edema. Patient noted onset three days ago of swelling in abdomen and legs, associated with dyspnea. Dyspnea is intermittent, sometimes worse with exertion, relieved by rest. Denies orthopnea, PND, chest pain, or early satiety. Notes that he was able to walk in to the ED without any dyspnea. He denies any prior h/o edema, or any personal or family history of heart disease. He denies nausea, diaphoresis, numbness, cough, or sore throat. Pain is unchanged. Patient notes that he was hospitalized a week ago in [place] for hyperglycemia of 1300, and that "all of my medications were changed, and that's when I felt bad after getting home." Denies discussing any anemia or abnormal blood counts at that time, other than his elevated A1c when he saw his PCP this week. He has a 30 pack-year smoking; quit after his hospital admission last week. He has never had an echocardiogram or a colonoscopy. Echo reviewed this visit and EF 55%. He will need to f/u with cardiology OP. BP improved after morning med changes and will continue meds OP. Cardiology appointment made. He has an appointment with his PCP tomorrow. He denies CP, SOB, abd. pain, N/V/D. - Vitals & Intake/Output Vital Signs: Vital Signs Temperature 99 F 01/18/24 07:24 Pulse Rate 70 01/18/24 07:24 Respiratory Rate 17 01/18/24 07:24 Blood Pressure 178/85 01/18/24 07:24 O2 Sat by Pulse Oximetry 93 L 01/18/24 10:00 Intake & Output: Intake & Output 01/16/24 01/17/24 01/18/24 01/19/24 11:59 11:59 11:59 11:59 Intake Total 600 180 Output Total 2300 9700 Balance -1700 -9520 Weight 124.284 kg 124.28 kg - Lab Result Diagrams: 01/18/24 04:50 01/18/24 04:50 Lab Results-Last 24 Hrs: Lab Results-Last 24 Hours 01/18/24 01/18/24 01/18/24 Range/Units 04:50 04:50 04:50 WBC 6.5 (4.23-9.07) x10^3/uL RBC 3.12 L (4.63-6.08) x10^6/uL Hgb 8.7 L (13.7-17.5) g/dL Hct 27.3 L (40.1-51.0) % MCV 87.5 (79.0-92.2) fL MCH 27.9 (25.7-32.2) pg MCHC 31.9 L (32.3-36.5) g/dL RDW 15.1 H (11.6-14.4) % Plt Count 192 (163-337) x10^3/uL MPV 11.2 (9.4-12.4) fL Sodium 135 (135-145) mmol/L Potassium 3.3 L (3.5-5.1) mmol/L Chloride 104 (98-107) mmol/L Carbon Dioxide 27 (22-30) mmol/L Anion Gap 7.1 (5-15) MEQ/L BUN 21 H (9-20) mg/dL Creatinine 0.95 (0.66-1.25) mg/dL Estimated GFR 91.6 ML/MIN Glucose 92 (74-106) mg/dL Calcium 8.3 L (8.4-10.2) mg/dL Total Bilirubin 0.30 (0.2-1.3) mg/dL AST 21 (17-59) U/L ALT 24 (0-50) U/L Alkaline Phosphatase 76 (38-126) U/L Serum Total Protein 5.8 L (6.3-8.2) g/dL Albumin 3.0 L (3.5-5.0) g/dL Procalcitonin 0.186 H (0.030-0.080) ng/mL Micro Results-Entire Visit: Accuchecks Date 01/18/24 Date 01/17/24 Date 01/17/24 Time 07:20 Time 16:17 - Radiology Exams Ordered Rad Exams-Entire Visit: Radiology Procedures Category Date Time Status CHEST WITH CONTRAST [CT] Stat Exams 01/16/24 20:57 Completed ECHO W/2D AND DOPPLER [US] Routine Exams 01/17/24 03:21 Taken - Procedures and Test Procedures and Tests throughout Hospitalization: Therapy Orders & Screens 01/17/24 01:11 EKG REPEAT IN AM Comment: Respiratory Therapy Consult ONCE Comment: Reason For Exam: 01/17/24 02:03 RT Screen per Nursing Assess ONCE Comment: Protocol Order Physician Instructions: Greater than 3 points order RT Admission Screen Reason For Exam: Triggered on Admission Diagnosis: dyspnea, bilat pleural effusions Diagnosis: dyspnea, bilat pleural effusions Pneumonia: No Home O2: No Asthma: No CHF: Yes Home CPAP/BIPAP: Yes Home Nebs/MDI: No Total Points: 8 01/17/24 02:22 Oxygen Nasal Cannula 2 lpm Comment: Diagnosis: dyspnea, bilat pleural effusions 01/17/24 03:44 Oxygen NASAL CANNULA 2 lpm Comment: Diagnosis: shortness of breath Discharge Exam General Appearance: no apparent distress, alert Neurologic Exam: alert, oriented x 3, cooperative, normal mood/affect, nml cerebellar function, sensation nml, No motor deficits Eye Exam: PERRL, EOMI, eyes nml inspection Ears, Nose, Throat Exam: normal ENT inspection, pharynx normal, moist mucous membranes Neck Exam: normal inspection, non-tender, supple, full range of motion Respiratory Exam: normal breath sounds, lungs clear, No respiratory distress Cardiovascular Exam: regular rate/rhythm, normal heart sounds, edema (BLLE) Gastrointestinal/Abdomen Exam: soft, No tenderness, No mass Male Genitalia Exam: deferred Rectal Exam: deferred Back Exam: normal inspection, normal range of motion, No CVA tenderness, No vertebral tenderness Extremity Exam: normal inspection, normal range of motion Skin Exam: normal color, warm, dry Final Diagnosis/Problem List - Final Discharge Diagnosis/Problem (1) Dyspnea Current Visit: Yes Status: Acute Assessment & Plan: - concerning for early CHF, with description of edema, - risk factors for cardiac disease with his age, gender, and smoking history. - Has never had an echo, and does not take diuretics typically. No signs of parenchymal lung disease on CT. - Chest CT 01/16/24 IMPRESSION: 1. No evidence of Acute pulmonary thromboembolism. 2. Mild to moderate bilateral pleural effusion with atelectatic bands in lower lobes and minimal surrounding haziness. Clinical and laboratory correlation is advised. 3. Mosaic attenuation in bilateral lung skaggs 4. A 4-5mm calcified nodule in the superior segment of right lower lobe. No follow-up is required. - lasix 40 IV BID, - monitor K, Mg levels - Echo reviewed - cardiology consult 01/17 - sxs improved O2 stopped - encouraged pt to wears CPAP at home as he refused to wear here IP. - torsemide daily po started Code(s): R06.00 - DYSPNEA, UNSPECIFIED (2) Anemia Current Visit: Yes Status: Acute Assessment & Plan: - check ferritin, Fe/TIBC, reticulocyte count - will need to follow up as outpatient for colonoscopy- f/u appointment made - ferrous sulfate daily added- continue OP - + Iron def anemia - Hgb 8.7 Code(s): D64.9 - ANEMIA, UNSPECIFIED (3) Tobacco dependence Current Visit: Yes Status: Chronic Assessment & Plan: - with 30 pack-year smoking history, in remission now, off cigarettes for the last week. - continue to encourage tobacco cessation Code(s): F17.200 - NICOTINE DEPENDENCE, UNSPECIFIED, UNCOMPLICATED (4) CHF (congestive heart failure) Current Visit: Yes Status: Acute Assessment & Plan: - TRANSTHORACIC ECHOCARDIOGRAM 01/17/2024: 1. In sinus rhythm during study. 2. Normal sized atria. 3. Normal biventricular wall thickness, chamber size and systolic function. 4. Estimated left ventricular ejection fraction is 55%. 5. Normal diastolic function profile. 6. Mild aortic sclerosis without stenosis. 7. Doppler: No significant valvular regurgitation. 8. Unable to estimate PA systolic pressure. 9. Mildly elevated right atrial pressure. 10. No pericardial effusion. - cardiology consult - New diagnosis. Most likely related to hypertensive heart disease and its attendant diastolic dysfunction. Need to evaluate for coronary artery disease. Siginificant diuresis with IV furosemide (net diuresis 6.3 liters thus far). Will change IV furosemide to torsemide 20 mg by mouth daily. - consider adding an SGLT-2 inhibitor - f/u with cardiology OP - appointment made Code(s): I50.9 - HEART FAILURE, UNSPECIFIED (5) Diabetes mellitus type II, uncontrolled Current Visit: Yes Status: Acute Assessment & Plan: - very poorly controlled; HbA1c this week was > 15.5 (per patient, was recorded as 18 in [facility] one week ago.) - Admission Glc levels better controlled. - continue home Lantus 18 BID - cover with moderate dose sliding scale insulin - accuchecks ac/hs Code(s): EKC3221 - (6) Hypertension Current Visit: Yes Status: Acute Assessment & Plan: - recs per cardiology: Uncontrolled. Exacerbated by beta-arlet withdrawal. Will increase losartan to 50 mg by mouth twice daily and discontinue lisinopril. If significant HTN persists tomorrow, consider increasing amlodipine to 10 mg daily. - BP improved today no need to increase amlodipine at this time. Code(s): I10 - ESSENTIAL (PRIMARY) HYPERTENSION (7) Obesity, morbid, BMI 40.0-49.9 Current Visit: Yes Status: Chronic Assessment & Plan: - advised ADA diet and exercise control Code(s): E66.01 - MORBID (SEVERE) OBESITY DUE TO EXCESS CALORIES (8) Sleep apnea Current Visit: Yes Status: Chronic Assessment & Plan: - wear cpap at home - refused to wear IP - pt asking for Cpap mask RX- CM to contact [employer]. Code(s): G47.30 - SLEEP APNEA, UNSPECIFIED - Discharge Discharge Date: 01/18/24 Disposition: Home, Self-Care Condition: Stable Prescriptions: New Losartan Potassium 50 mg [Cozaar 50 MG] 50 mg PO BID 30 Days #60 tablet Torsemide 20 mg [Demadex 20 mg] 20 mg PO DAILY 30 Days #30 tablet Ferrous Sulfate 325 mg [Feosol 325 mg] 325 mg PO DAILY 30 Days #30 tablet Continue Amlodipine Besylate 5 mg [Norvasc 5 mg] 5 mg PO DAILY Atorvastatin Calcium [Lipitor] 10 mg PO HS Insulin Aspart [Insulin Aspart Flexpen] 0 ml SQ TIDWMEALS Bisoprolol Fumarate 5 mg PO DAILY Insulin Glargine [Lantus Insulin] 18 unit SQ BID Discontinued Losartan Potassium 50 mg [Cozaar 50 MG] 50 mg PO DAILY Follow up with: ARABELLA ABDI, [facility] C[facility] NURSE PRACTITIONER [Primary Care Provider] - 01/24/24 10:00 am
[2024-01-18 12:26] VITALS: BP 125/58; PULSE 92; RESP 26; O2SAT 92
== END 2024-01-18 15:00 | disposition home or self-care (01) ==
LOC: ED 20:42 → UNDOADMOB 01-17 01:14 → MED SURG 01-17 01:14
PROVIDERS: ADMIT Internal Medicine; ATTEND Internal Medicine
DX: R06.00 Dyspnea, unspecified (principal); D64.9 Anemia, unspecified; F17.200 Nicotine dependence, unspecified, uncomplicated; I11.0 Hypertensive heart disease with heart failure; I50.9 Heart failure, unspecified; E11.9 Type 2 diabetes mellitus without complications; E66.01 Morbid (severe) obesity due to excess calories; G47.30 Sleep apnea, unspecified; R60.0 Localized edema; Z79.899 Other long term (current) drug therapy
CPT/HCPCS: 0241U; 36000; 36415; 71260; 80053; 82728; 82805; 83540; 83550; 83735; 83880; 84145; 84484; 85025; 85027; 85045; 85046; 87651; 93005; 93041; 93268; 93306; 94760; 94762; 96374; 99285; J1650; J1817; J1940; Q3014; A9270-GY; G0378

== ENCOUNTER 2024-08-12 20:25 | Emergency (ER) | payer OTHER ==
[2024-08-12 20:47] VITALS: TEMP 100.1
--- NOTE | 2024-08-12 20:47 | ERPHSYRPT ---
- History of Present Illness Source: patient Exam Limitations: no limitations Physician History: Patient has a lot of drainage from the incision from his CABG. His CABG was 18 days ago. He has had a fever 2. Please also had an upper respiratory lung infection. He is currently taking amoxicillin for that. He is not short of breath.The wound had been draining a lot of clear serous fluid. It got more cloudy and purulent yesterday and today.It is draining pretty significant amount of fluid. It was not thick and purulent. It was veryThin and clear for the most part there was some cloudy areas. I got a culture.It is tender to the touch but it is not extremely painful.Nothing makes his symptoms better or worse.He has had this persistent cough for about a week.I do not believe he has had any viral testing. Allergies/Adverse Reactions: No Known Drug Allergies Allergy (Verified 08/12/24 20:47) Home Medications: Amlodipine Besylate 5 mg [Norvasc 5 mg] 5 mg PO DAILY 10/28/14 [History] Atorvastatin Calcium [Lipitor] 10 mg PO HS 01/16/24 [History] Bisoprolol Fumarate 5 mg PO DAILY 01/17/24 [History] Insulin Aspart [Insulin Aspart Flexpen] 0 ml SQ TIDWMEALS 01/17/24 [History] Insulin Glargine [Lantus Insulin] 18 unit SQ BID 01/17/24 [History] Hx Tetanus, Diphtheria Vaccination/Date Given: Yes (2011) Hx Influenza Vaccination/Date Given: No Hx Pneumococcal Vaccination/Date Given: No Travel Risk - Emerging Infectious Disease Are you exhibiting symptoms associated with any current EIDs: Yes Symptoms: Shortness of Breath - Review of Systems Constitutional: Fever Eyes: No Symptoms, Foreign Body Sensation Respiratory: Cough Skin: Other (Surgical incision site is draining.) All Other Systems: Reviewed and Negative - Past Medical History Pertinent Past Medical History: Yes Neurological History: No Pertinent History ENT History: No Pertinent History Cardiac History: Hypertension Respiratory History: No Pertinent History, Sleep Apnea Endocrine Medical History: Diabetes Type II Musculoskeletal History: No Pertinent History GI Medical History: No Pertinent History History: No Pertinent History Psycho-Social History: No Pertinent History Male Reproductive Disorders: No Pertinent History - Past Surgical History Past Surgical History: Yes Other Surgical History: TONSILS. TENDON REPAIR. 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, was hospitalized for one month ([facility]) 2019 - Social History Smoking Status: Former smoker Exposure to second hand smoke: No Drug Use: none - Social Determinants of Health Will the patient participate in the screening: Yes Do you worry about a steady place to live?: No In the past 12 months,have you had to go without utilities?: No Transportation Issues: No Has anyone in your support network made you feel unsafe?: No Have you or anyone in your house had to go w/o enough food: No - Nursing Vital Signs Nursing Vital Signs: Initial Vital Signs Temperature 100.1 F 08/12/24 20:31 Pulse Rate 108 H 08/12/24 20:31 Respiratory Rate 20 08/12/24 20:31 Blood Pressure 119/93 08/12/24 20:31 O2 Sat by Pulse Oximetry 99 08/12/24 20:31 Pain Scale Pain Intensity 4 - Physical Exam General Appearance: no apparent distress Eye Exam: PERRL/EOMI ENT Exam: normal ENT inspection Neck Exam: normal inspection Respiratory Exam: normal breath sounds, chest non-tender, lungs clear Cardiovascular/Chest Exam: normal heart sounds, regular rate/rhythm Gastrointestinal/Abdominal Exam: soft, non tender, no distention Extremity Exam: non-tender, normal range of motion, normal inspection Neurologic Exam: alert, oriented x 3 Skin Exam: other (Surgical wound has some erythema around the borders. It does not appear like it is a cellulitis. There is a wound dehiscence area that is draining significant amount of clear serous fluid that does have some mild characteristics of purulence.) - Course Nursing assessment & vital signs reviewed: Yes Ordered Tests: Active Orders 24 hr Category Date Time Status CHEST WITHOUT CONTRAST [CT] Stat Exams 08/12/24 20:55 Completed BLOOD CULTURE Stat Lab 08/12/24 21:10 Received CBC W DIFF Stat Lab 08/12/24 21:10 Completed CMP Stat Lab 08/12/24 21:10 Completed CULTURE,URINE Stat Lab 08/12/24 23:24 Received CULTURE,WOUND Stat Lab 08/12/24 21:10 Received Lactic Acid Stat Lab 08/12/24 20:55 Completed UA W/RFX UR CULTURE Stat Lab 08/12/24 23:24 Completed Medication Summary Generic Name Dose Route Start Last Admin Trade Name Freq PRN Reason Stop Dose Admin Sodium Chloride 1,000 mls @ 999 mls/hr 08/13/24 01:22 08/13/24 01:35 Sodium Chloride 0.9% 1000 Ml IV 08/13/24 03:22 999 mls/hr .Q1H1M STA Administration Discontinued Medications Generic Name Dose Route Start Last Admin Trade Name Freq PRN Reason Stop Dose Admin Sodium Chloride 1,000 mls @ 999 mls/hr 08/12/24 21:58 08/12/24 23:04 Sodium Chloride 0.9% 1000 Ml IV 08/12/24 22:58 Infused .Q1H1M STA Infusion Sodium Chloride Confirm 08/12/24 22:01 Sodium Chloride 0.9% 1000 Ml Administered 08/12/24 22:02 Dose 1,000 mls @ ud .ROUTE .STK-MED ONE Vancomycin HCl 1 gm in 200 mls @ 125 mls/hr 08/12/24 23:13 08/13/24 00:59 Vancomycin 1 Gram/200 Ml Bag IV 08/13/24 00:48 Infused STAT ONE Infusion Vancomycin HCl Confirm 08/12/24 23:18 Vancomycin 1 Gram/200 Ml Bag Administered 08/12/24 23:19 Dose 1 gm in 200 mls @ ud IV .STK-MED ONE Sodium Chloride 1,000 mls @ 999 mls/hr 08/12/24 23:34 08/13/24 00:59 Sodium Chloride 0.9% 1000 Ml IV 08/13/24 00:34 Infused .Q1H1M STA Infusion Sodium Chloride Confirm 08/12/24 23:44 Sodium Chloride 0.9% 1000 Ml Administered 08/12/24 23:45 Dose 1,000 mls @ ud .ROUTE .STK-MED ONE Piperacillin Sod/Tazobactam 100 mls @ 200 mls/hr 08/13/24 01:22 08/13/24 01:34 Sod 3.375 gm/ Sodium Chloride IV 08/13/24 01:51 200 mls/hr STAT ONE 200 mls/hr Administration Sodium Chloride Confirm 08/13/24 01:28 Sodium Chloride 0.9% 1000 Ml Administered 08/13/24 01:29 Dose 1,000 mls @ ud .ROUTE .STK-MED ONE Sodium Chloride Confirm 08/13/24 01:30 Sodium Chloride 100ml Mini-Bag Plus Administered 08/13/24 01:31 Dose 100 mls @ ud IV .STK-MED ONE Piperacillin Sod/Tazobactam Sod Confirm 08/13/24 01:28 Piperacillin/Tazobactam Sodium 3.375 Gm Vial Administered 08/13/24 01:29 Dose 3.375 gm IV .STK-MED ONE Lab/Rad Data: Laboratory Result Diagrams 08/12/24 21:10 08/12/24 21:10 Laboratory Results 08/12/24 08/12/24 08/12/24 Range/Units 23:24 21:10 21:10 WBC 10.0 H (4.23-9.07) x10^3/uL RBC 3.09 L (4.63-6.08) x10^6/uL Hgb 8.4 L (13.7-17.5) g/dL Hct 26.9 L (40.1-51.0) % MCV 87.1 (79.0-92.2) fL MCH 27.2 (25.7-32.2) pg MCHC 31.2 L (32.3-36.5) g/dL RDW 14.6 H (11.6-14.4) % Plt Count 370 H (163-337) x10^3/uL MPV 10.7 (9.4-12.4) fL Gran % 83.7 H (34.0-67.9) % Immature Gran % (Auto) 0.5 H (0.001-0.429) % Nucleat RBC Rel Count 0.0 (0.00-0.2) % Eos # (Auto) 0.29 (0.04-0.54) x10^3/uL Immature Gran # (Auto) 0.05 H (0.001-0.031) x10^3u/L Absolute Lymphs (auto) 0.47 L (1.32-3.57) x10^3/uL Absolute Monos (auto) 0.79 (0.30-0.82) x10^3/uL Absolute Nucleated RBC 0.00 (0.00-0.012) x10^3u/L Lymphocytes % 4.7 L (21.8-53.1) % Monocytes % 7.9 (5.3-12.2) % Eosinophils % 2.9 (0.8-7.0) % Basophils % 0.3 (0.2-1.2) % Absolute Granulocytes 8.35 H (1.78-5.38) x10^3/uL Basophils # 0.03 (0.01-0.08) x10^3/uL Sodium 137 (135-145) mmol/L Potassium 4.3 (3.5-5.1) mmol/L Chloride 100 (98-107) mmol/L Carbon Dioxide 25 (22-30) mmol/L Anion Gap 16.2 H (5-15) MEQ/L BUN 38 H (9-20) mg/dL Creatinine 1.55 H (0.66-1.25) mg/dL Estimated GFR 50.6 ML/MIN Glucose 151 H (74-106) mg/dL Lactic Acid (0.4-2.0) Calcium 9.0 (8.4-10.2) mg/dL Total Bilirubin 0.60 (0.2-1.3) mg/dL AST 55 (17-59) U/L ALT 73 H (0-50) U/L Alkaline Phosphatase 98 (38-126) U/L Serum Total Protein 7.1 (6.3-8.2) g/dL Albumin 3.8 (3.5-5.0) g/dL Urine Color Yellow (Yellow) Urine Appearance Turbid A (Clear) Urine pH 5.5 (4.6-8.0) Ur Specific [place] 1.015 (1.005-1.030) Urine Protein 100 A (Negative) Urine Glucose (UA) >=1000 A (Negative) mg/dL Urine Ketones Negative (Negative) Urine Blood Moderate A (Negative) Urine Nitrite Negative (Negative) Urine Bilirubin Negative (Negative) Urine Urobilinogen 0.2 (0.2) mg/dL Ur Leukocyte Esterase Large A (Negative) U Hyaline Cast (Auto) 3-5 A (0-2) /LPF Urine Microscopic RBC 11-20 A (0-5) /HPF Urine Microscopic WBC >100 A (0-5) /HPF Ur Epithelial Cells Few (None Seen) /HPF Urine Bacteria None Seen (None Seen) /HPF Urine Yeast (Budding) Moderate A (None Seen) /HPF Urine Culture Reflexed YES (NO) Influenza Type A Ag (NEGATIVE) Influenza Type B Ag (NEGATIVE) RSV (PCR) (NEGATIVE) SARS-CoV-2 (PCR) (NEGATIVE) Slides for Path Review YES 08/12/24 08/12/24 Range/Units 20:56 20:55 WBC (4.23-9.07) x10^3/uL RBC (4.63-6.08) x10^6/uL Hgb (13.7-17.5) g/dL Hct (40.1-51.0) % MCV (79.0-92.2) fL MCH (25.7-32.2) pg MCHC (32.3-36.5) g/dL RDW (11.6-14.4) % Plt Count (163-337) x10^3/uL MPV (9.4-12.4) fL Gran % (34.0-67.9) % Immature Gran % (Auto) (0.001-0.429) % Nucleat RBC Rel Count (0.00-0.2) % Eos # (Auto) (0.04-0.54) x10^3/uL Immature Gran # (Auto) (0.001-0.031) x10^3u/L Absolute Lymphs (auto) (1.32-3.57) x10^3/uL Absolute Monos (auto) (0.30-0.82) x10^3/uL Absolute Nucleated RBC (0.00-0.012) x10^3u/L Lymphocytes % (21.8-53.1) % Monocytes % (5.3-12.2) % Eosinophils % (0.8-7.0) % Basophils % (0.2-1.2) % Absolute Granulocytes (1.78-5.38) x10^3/uL Basophils # (0.01-0.08) x10^3/uL Sodium (135-145) mmol/L Potassium (3.5-5.1) mmol/L Chloride (98-107) mmol/L Carbon Dioxide (22-30) mmol/L Anion Gap (5-15) MEQ/L BUN (9-20) mg/dL Creatinine (0.66-1.25) mg/dL Estimated GFR ML/MIN Glucose (74-106) mg/dL Lactic Acid 3.0 H (0.4-2.0) Calcium (8.4-10.2) mg/dL Total Bilirubin (0.2-1.3) mg/dL AST (17-59) U/L ALT (0-50) U/L Alkaline Phosphatase (38-126) U/L Serum Total Protein (6.3-8.2) g/dL Albumin (3.5-5.0) g/dL Urine Color (Yellow) Urine Appearance (Clear) Urine pH (4.6-8.0) Ur Specific [place] (1.005-1.030) Urine Protein (Negative) Urine Glucose (UA) (Negative) mg/dL Urine Ketones (Negative) Urine Blood (Negative) Urine Nitrite (Negative) Urine Bilirubin (Negative) Urine Urobilinogen (0.2) mg/dL Ur Leukocyte Esterase (Negative) U Hyaline Cast (Auto) (0-2) /LPF Urine Microscopic RBC (0-5) /HPF Urine Microscopic WBC (0-5) /HPF Ur Epithelial Cells (None Seen) /HPF Urine Bacteria (None Seen) /HPF Urine Yeast (Budding) (None Seen) /HPF Urine Culture Reflexed (NO) Influenza Type A Ag NEGATIVE (NEGATIVE) Influenza Type B Ag NEGATIVE (NEGATIVE) RSV (PCR) NEGATIVE (NEGATIVE) SARS-CoV-2 (PCR) NEGATIVE (NEGATIVE) Slides for Path Review - Progress Progress: unchanged Progress Note: Patient was stable throughout stay. On the differential was a surgical site infection, also was urinary tract infection as well as pneumonia and COVID flu and RSV. We got a CT to look at his soft tissue looks like there is definitely a area that could possibly be an abscess. Will start him on vancomycin and arrange for transfer to where he had his heart surgery.A septic workup was done.I started the patient on vancomycin and later Zosyn. He may have a urinary tract infection as well 2. I spoke with the solar water heater installer named Dr. Andersen he was on-call at [facility]. They agreed to accept the patient in consult I spoke with the hospitalist there who agreed to accept the patient.At this time the patient's vital signs are stable but they are just a little bit soft. I think he may be early sepsis. He is getting her to start his third liter of fluids and the antibiotics have been hung. 08/12/24 23:33 08/13/24 01:23 Medical Desision Making - Independent Historian Additional History obtained from: Spouse - Discussion of managment Care discussed with:: hospitalist Reviewed:: Need for additional workup Agreed on:: Treatment plan, decision to admit Will see patient: in hospital - Diagnostic Testing Diagnostic test were ordered, analyzed, and reviewed by me: Yes Radiological Interpretation: Discussed w/ radiologist - Risk of complications The pt has a mod risk of morbidity or mortality based on: Need for prescription drug management - Departure Departure Disposition: Transfer Clinical Impression: Sepsis, Postoperative infection, Urinary tract infection Condition: Good Critical Care Time: No Referrals: ERIK JERONIMO DO [Primary Care Provider] - Follow up/PCP as directed
[2024-08-12 21:14] LABS: Absolute Neutrophil Ct (ANC) 8.35 x10^3/uL (1.78-5.38); BASOPHIL % 0.3 % (0.2-1.2); Basophil (Absolute #) 0.03 x10^3/uL (0.01-0.08); Eosinophil % 2.9 % (0.8-7.0); Eosinophil (Absolute #) 0.29 x10^3/uL (0.04-0.54); Hematocrit 26.9 % (40.1-51.0); Hemoglobin 8.4 g/dL (13.7-17.5); IMMATURE GRAN # 0.05 x10^3u/L (0.001-0.031); IMMATURE GRAN % 0.5 % (0.001-0.429); Lymphocyte (Absolute #) 0.47 x10^3/uL (1.32-3.57); Lymphocytes % 4.7 % (21.8-53.1); Mean Cell Volume 87.1 fL (79.0-92.2); Mean Corpuscular Hemoglobin 27.2 pg (25.7-32.2); Mean Corpuscular Hgb Concent. 31.2 g/dL (32.3-36.5); Mean Platelet Volume 10.7 fL (9.4-12.4); Monocyte (Absolute #) 0.79 x10^3/uL (0.30-0.82); Monocytes % 7.9 % (5.3-12.2); Neutrophil % 83.7 % (34.0-67.9); Platelet Count 370 x10^3/uL (163-337); Red Blood Count 3.09 x10^6/uL (4.63-6.08); Red Cell Distribution Width 14.6 % (11.6-14.4)
[2024-08-12 21:30] LABS: ALBUMIN 3.8 g/dL (3.5-5.0); ANION GAP 16.2 MEQ/L (5-15); BILIRUBIN,TOTAL 0.6 mg/dL (0.2-1.3); Creatinine 1 1.55 mg/dL (0.66-1.25); EST GLOMERULAR FILTRATION RATE 50.6 ML/MIN; Potassium 4.3 mmol/L (3.5-5.1); Total Protein 7.1 g/dL (6.3-8.2)
[2024-08-12 21:53] LABS: INFLUENZA A NEGATIVE (NEGATIVE); INFLUENZA B NEGATIVE (NEGATIVE); RESPIRATORY SYNCTIAL VIRUS NEGATIVE (NEGATIVE); SARS-CoV-2 Xpert Express NEGATIVE (NEGATIVE)
[2024-08-12] MEDS ORDERED: Sodium Chloride 0.9% 1000 ML 1,000 ML ONE ×2 (22:01→23:44)
[2024-08-12] MEDS: Sodium Chloride 0.9% 1000 ML 1,000 ML IV STA ×2 (22:02→23:45)
--- NOTE | 2024-08-12 22:49 | XRAY ---
CLINICAL HISTORY: post cabg wound draining, fever COMPARISON: Compared to prior CT dated 01/16/2024 TECHNIQUE: Contiguous axial CT images of the chest were acquired without administration of intravenous contrast. Coronal and sagittal reconstructions were obtained. One of the following dose reduction techniques was utilized for this exam: Automated exposure control, adjustment of the mA and/or kV according to patient size, use of iterative reconstruction. FINDINGS: Lungs: The lung parenchyma is clear with no evidence of consolidation, collapse, or focal lesions. No evidence of interstitial lung disease or emphysema. Calcified nodule 5 mm at the superior segment of the right lower lobe (unchanged) Left mild pleural effusion or pleural thickening. Mediastinum: The mediastinum is normal in size and contour. Reactive small mediastinal lymph nodes. The heart size increases. Mild pericardiac thickening. Hilar Structures: The hilar structures appear normal without enlargement or abnormality. Trachea and Main Bronchi: The trachea and main bronchi are patent without evidence of obstruction or abnormality. Chest Wall: Intact median sternotomy metallic sutures with anterior chest wall surgical emphysema. Soft tissue opacity posterior to the last stitch about 27x10 x36mm with air inside and away from the pericardium Last wire from lower sternum shows collection related to the [id number] mm just anterior to the xiphisternum. Upper Abdomen: Right adrenal nodule [id number] mm. Left mid-zonal medullary hypo to isodense lesion 20x20 mm (prominent renal pyramid or focal lesion) Bones: Visualized osseous structures are normal, no evidence of fracture or lytic/sclerotic lesions. Bilateral shoulders osteoarthritic changes with loose bodies of the right shoulder. IMPRESSION: 1. Calcified nodule 5 mm at the superior segment of the right lower lobe (unchanged) 2. Soft tissue opacity posterior to the last stitch about 27x10 x36mm with air inside and away from the pericardium (new)(Post-operative state) 3. Last wire from lower sternum shows collection related to the [id number] mm just anterior to the xiphisternum.(new)(Post-operative state) 4. Left mild pleural effusion or pleural thickening.(unchanged) 5. Cardiomegaly. 6. Intact median sternotomy metallic sutures with anterior chest wall surgical emphysema.(Post-operative state) [facility] ER was called at [phone] at 9:41 PM [facility] [employer], 08/12/2024 and results were verbally communicated with [place](nurse). Electronically Signed by: Andrei Merchant MD. (08/12/2024 22:46:06 EST)
[2024-08-12] MEDS ORDERED: VANCOMYCIN 1 GRAM/200 ML BAG 1 GM/200 ML PIGGYBACK IV ONE (23:18)
[2024-08-12] MEDS: VANCOMYCIN 1 GRAM/200 ML BAG 1 GM/200 ML PIGGYBACK IV ONE (23:20)
[2024-08-12 23:26] LABS: Slide Review 1 YES
[2024-08-12 23:44] LABS: Appearance Turbid (Clear); Bacteria None Seen /HPF (None Seen); Bilirubin Negative (Negative); Blood Moderate (Negative); Epithelial Cells Few /HPF (None Seen); Glucose, Urine >=1000 mg/dL (Negative); Ketones Negative (Negative); Leukocyte Esterase Large (Negative); Nitrite Negative (Negative); Ph 5.5 (4.6-8.0); Protein,Urine Dip 100 (Negative); Specific Gravity 1.015 (1.005-1.030); Urobilinogen 0.2 mg/dL (0.2); WBC >100 /HPF (0-5)
[2024-08-12 23:50] LABS: Budding Yeast Moderate /HPF (None Seen)
[2024-08-13] MEDS ORDERED: Sodium Chloride 0.9% 1000 ML 1,000 ML ONE (01:28)
[2024-08-13] MEDS ORDERED: PIPERACILLIN/TAZOBACTAM IV ONE (01:28)
[2024-08-13] MEDS ORDERED: Sodium Chloride 100ML MINI-BAG PLUS 100 ML IV ONE (01:30)
[2024-08-13] MEDS: PIPERACILLIN/TAZOBACTAM 3.375 GM in Sodium Chloride 100ML MINI-BAG PLUS 100 ML IV ONE (01:34)
[2024-08-13] MEDS: Sodium Chloride 0.9% 1000 ML 1,000 ML IV STA (01:35)
[2024-08-13] MEDS ORDERED: NORCO 5/325 MG ONE (03:00)
[2024-08-13] MEDS: NORCO 5/325 MG PO ONE (03:01)
[2024-08-13 03:04] VITALS: PULSE 106
[2024-08-13 03:05] VITALS: BP 126/76; RESP 27; O2SAT 94
== END 2024-08-13 03:55 | disposition short-term general hospital (02) ==
LOC: ED 20:25
DX: T81.49XA Infection following a procedure, other surgical site, initial encounter (principal); T81.44XA Sepsis following a procedure, initial encounter; A41.9 Sepsis, unspecified organism; N39.0 Urinary tract infection, site not specified; R50.9 Fever, unspecified; R05.1 Acute cough; I10 Essential (primary) hypertension; E11.9 Type 2 diabetes mellitus without complications; Z79.4 Long term (current) use of insulin; Z79.899 Other long term (current) drug therapy
CPT/HCPCS: 0241U; 36415; 71250; 80053; 81001; 83605; 85025; 87040; 87070; 87077; 87086; 87186; 96361; 96365; 96366; 96367; 99285; A9270-GY; J3370

== ENCOUNTER 2024-09-23 01:54 | Emergency (ER) | payer OTHER ==
[2024-09-23 02:34] VITALS: BP 138/61; PULSE 76; RESP 20; O2SAT 96
--- NOTE | 2024-09-23 02:41 | ERPHSYRPT ---
- History of Present Illness Time Seen by Provider: 09/23/24 02:20 Source: patient, family Exam Limitations: no limitations Patient Subjective Stated Complaint: c/o de la rosa catheter discharged Triage Nursing Assessment: patient brought into ED by daughter with c/o dislodged de la rosa catheter. patient has a de la rosa after he had pectoral flap surgery a month ago and has had a de la rosa catheter in since because he still has trouble urinating. Patient's vitals wnl, skin w/n/d, rates pain 7/10, brought in by wheelchair, patient doesn't appear to be in any distress at this time. Physician History: This is a 59-year-old obese white male who has had a De La Rosa catheter in place for a long time following a pectoral flap surgery. He was working at his new house renovating it and this morning he was tripped up and stepped on his De La Rosa catheter dislodging it. He is here for De La Rosa catheter placement Timing/Duration: today Activites at Onset: none Severity of Pain-Max: none Severity of Pain-Current: none Modifying Factors: Improves With: nothing Associated Symptoms: denies symptoms Sexual intercourse history: non-contributory Allergies/Adverse Reactions: No Known Drug Allergies Allergy (Verified 09/23/24 02:05) Home Medications: Atorvastatin Calcium [Lipitor] 10 mg PO HS 01/16/24 [History] Insulin Aspart [Insulin Aspart Flexpen] 0 ml SQ TIDWMEALS 01/17/24 [History] Insulin Glargine [Lantus Insulin] 25 unit SQ BID 01/17/24 [History] Blood-Glucose Meter,Continuous [Dexcom G7 Pricing Analyst] 1 each SQ DAILY 09/23/24 [History] Blood-Glucose Sensor [Dexcom G7 Sensor] 1 applic SQ DAILY 09/23/24 [History] Quetiapine Fumarate [Seroquel] 25 mg PO HS 09/23/24 [History] Tamsulosin HCl [Flomax] 0.4 mg PO DAILY 09/23/24 [History] Torsemide 20 mg [Demadex 20 mg] 20 mg PO BID 09/23/24 [History] Hx Tetanus, Diphtheria Vaccination/Date Given: Yes (2011) Hx Influenza Vaccination/Date Given: No Hx Pneumococcal Vaccination/Date Given: No Travel Risk - International Travel Have you traveled outside of the country in past 3 weeks: No - Emerging Infectious Disease Are you exhibiting symptoms associated with any current EIDs: No Symptoms: Shortness of Breath - Past Medical History Pertinent Past Medical History: Yes Neurological History: No Pertinent History ENT History: No Pertinent History Cardiac History: Hypertension Respiratory History: No Pertinent History, Sleep Apnea Endocrine Medical History: Diabetes Type II Musculoskeletal History: No Pertinent History GI Medical History: No Pertinent History History: No Pertinent History Psycho-Social History: No Pertinent History Male Reproductive Disorders: No Pertinent History Other Medical History: infection in chest that needed pectoral flap and drain - Past Surgical History Past Surgical History: Yes Cardiac: CABG Other Surgical History: TONSILS. TENDON REPAIR. 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, was hospitalized for one month ([facility]) 2019 - Social History Smoking Status: Former smoker Exposure to second hand smoke: No Drug Use: none - Social Determinants of Health Will the patient participate in the screening: Yes Do you worry about a steady place to live?: No Do you have any problems with any of the following?: No known problems In the past 12 months,have you had to go without utilities?: No Transportation Issues: No Has anyone in your support network made you feel unsafe?: No Have you or anyone in your house had to go w/o enough food: No - Review of Systems Constitutional: No Symptoms Eyes: No Symptoms Ears, Nose, & Throat: No Symptoms Respiratory: No Symptoms Cardiac: No Symptoms Abdominal/Gastrointestinal: No Symptoms Genitourinary Symptoms: No Symptoms Musculoskeletal: No Symptoms Skin: No Symptoms Neurological: No Symptoms Psychological: No Symptoms Endocrine: No Symptoms Hematologic/Lymphatic: No Symptoms Immunological/Allergic: No Symptoms All Other Systems: Reviewed and Negative - Nursing Vital Signs Nursing Vital Signs: Initial Vital Signs Pulse Rate 84 09/23/24 02:06 Respiratory Rate 18 09/23/24 02:06 Blood Pressure 129/53 09/23/24 02:06 O2 Sat by Pulse Oximetry 94 L 09/23/24 02:06 Pain Scale Pain Intensity 7 - Physical Exam General Appearance: no apparent distress, alert, obese Eye Exam: PERRL/EOMI, eyes nml inspection Ears, Nose, Throat Exam: normal ENT inspection, moist mucous membranes Neck Exam: normal inspection, non-tender, supple, full range of motion Respiratory Exam: lungs clear, airway intact, No chest tenderness, No respiratory distress Gastrointestinal/Abdomen Exam: No tenderness Rectal Exam: not done Back Exam: normal inspection, normal range of motion, No CVA tenderness, No vertebral tenderness Extremity Exam: normal inspection, normal range of motion, pelvis stable Neurologic Exam: alert, oriented x 3, cooperative, coil taper II-XII nml as tested, normal mood/affect, nml cerebellar function, nml station & gait, sensation nml Skin Exam: normal color, warm, dry Lymphatic Exam: No adenopathy SpO2 Interpretation: normal SpO2: 96 - Course Nursing assessment & vital signs reviewed: Yes - Progress Progress: improved Progress Note: 09/23/24 02:39 My medical decision making of the assignment of low complexity to this patient's medical issue today is based on review of the patient's past medical history, review of the patient's medication list, review the patient drug allergy list, history present illness and physical findings on examination. No laboratory or radiographic studies are necessary in the workup of this patient. Differential diagnosis includes was not limited to dislodgment of De La Rosa catheter Counseled pt/family regarding: diagnosis, need for follow-up Medical Desision Making - Independent Historian Additional History obtained from: Spouse - Diagnostic Testing Diagnostic test were ordered, analyzed, and reviewed by me: No - Risk of complications Low Risk: Low risk of morbidity from additional dx testing or treatment - Departure Departure Disposition: Home Clinical Impression: Dislodged De La Rosa catheter, Catheter (urine) change required Condition: Stable Critical Care Time: No Referrals: ERIK JERONIMO DO [Primary Care Provider, [facility]] - Follow up/PCP as directed Additional Instructions: Take your medications as prescribed. Keep your urology appointment as scheduled.
== END 2024-09-23 02:54 | disposition home or self-care (01) ==
LOC: ED 01:54
DX: T83.028A Displacement of other urinary catheter, initial encounter (principal); R33.9 Retention of urine, unspecified; I10 Essential (primary) hypertension; E11.9 Type 2 diabetes mellitus without complications; Z79.4 Long term (current) use of insulin; Z79.899 Other long term (current) drug therapy
CPT/HCPCS: 51702; 99282; 99283